=== PATIENT | female | born 1980 | race African-American/Black ===

== ENCOUNTER 2016-09-18 23:55 | Emergency (ER) | payer OTHER ==
[~2016-09-18] VITALS: Ht 162.6 cm; Wt 100.2 kg
[~2016-09-18 23:55] MED LIST: PROMSYP PO; Z.0.NO CURRENT MEDS
[2016-09-19 00:02] VITALS: BP 136/81; PULSE 56; RESP 14; TEMP 97.7; O2SAT 98
[2016-09-19] MEDS ORDERED: LISI-519 PO (00:32)
[2016-09-19] MEDS ORDERED: [UNRECOGNIZED DRUG - OTHER] PO (00:32)
[2016-09-19] MEDS ORDERED: [UNRECOGNIZED DRUG - CODE] PO (00:32)
[2016-09-19] MEDS ORDERED: LISI10TA3 PO (00:32)
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
[2016-09-19 00:53] LABS: BLOOD, URINE NEG (NEG); GLUCOSE,URINE NEG (NEG); KETONE, URINE TRACE mg/dL (NEG); NITRITE,URINE NEG (NEG); PH, URINE 5.5 (5.0-8.5)
[2016-09-19 00:55] LABS: URINE COLOR YELLOW (YELLW/STRAW)
[2016-09-19 00:57] LABS: COMMENT (UR) CULT NOT INDICATED; CULTURE IF INDICATED CULT NOT INDICATED; RBC, URINE 0-2 /hpf (0-3); SQUAMOUS EPITHELIAL CELL URINE 0-5 /hpf (0-5); WBC, URINE 0-2 /hpf (0-5)
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
[2016-09-19 01:36] VITALS: BP 118/84
== END 2016-09-19 01:41 | disposition home or self-care (01) ==
LOC: PHED 23:55
DX: S39.012A Strain of muscle, fascia and tendon of lower back, initial encounter (principal); V43.52XA Car driver injured in collision with other type car in traffic accident, initial encounter; Y93.89 Activity, other specified; Y92.412 Parkway as the place of occurrence of the external cause
CPT/HCPCS: 72100; 81001; 84703; 99283